=== PATIENT | female | born 1970 | race Caucasian/White ===

== ENCOUNTER 2022-11-11 12:52 | Emergency (ER) | payer OTHER, SELFPAY ==
[2022-11-11] VITALS (7 sets, daily range): BP systolic 133; BP diastolic 75; PULSE 78–85; RESP 16; TEMP 36.9; O2SAT 94–100; BMI 26.9
--- NOTE | 2022-11-11 13:02 | DI.CT.S_ITS ---
PROCEDURE: CT HEAD/BRAIN WO CON INDICATIONS: confusion hx of head bleed TECHNIQUE: Noncontrast 4.5 mm thick angled axial sections acquired from the foramen magnum to the vertex, with coronal and sagittal reformats. For radiation dose reduction, the following was used: automated exposure control, adjustment of mA and/or kV according to patient size. COMPARISON: [facility], CT, CT HEAD WITHOUT CONTRAST, 12/25/2020, 9:57. FINDINGS: Image quality: Excellent. CSF spaces: Basal cisterns are patent. No extra-axial fluid collections. Ventricles are normal in size and shape. Brain: No midline shift. No intracranial masses or hemorrhage. Jimenez-white matter interface is normal. Skull and face: Calvarium and visualized facial bones are intact, without suspicious lesions. Sinuses: Visualized sinuses and mastoids are clear. IMPRESSION: No evidence acute intracranial abnormality. Dictated by: John Flores M.D. on 11/11/2022 at 13:25 Approved by: John Flores M.D. on 11/11/2022 at 13:26
[2022-11-11 13:35] LABS: Add Manual Diff / Slide Review NO; Basophils Absolute Auto 0 /uL (0-100); Basophils Percent Auto 0.7 % (0-2); Eosinophils Absolute Auto 100 /uL (0-450); Eosinophils Percent Auto 1.3 % (2-4); Hematocrit 41.7 % (36-46); Hemoglobin 14.3 g/dL (12.0-16.0); Lymphocytes Absolute Auto 2100 /uL (1100-4500); Lymphocytes Percent Auto 33.2 % (25-40); Mean Corpuscular HGB Conc 34.4 % (30-36); Mean Corpuscular Volume 93.1 fL (80-100); Monocytes Absolute Auto 500 /uL (0-900); Monocytes Percent Auto 7.2 % (3-14); Neutrophils Absolute Auto 3700 /uL (1500-7000); Neutrophils Percent Auto 57.6 % (50-75); Platelet Count 181 X10^3/uL (150-400); Red Blood Cell Count 4.48 X10^6/uL (4.0-5.2); White Blood Cell Count 6.3 X10^3/uL (4.5-11.0)
[2022-11-11 13:41] LABS: Prothrombin Time 11.9 SECONDS (10.1-12.7)
--- NOTE | 2022-11-11 13:41 | ED_ITS ---
HPI - Neuro Symptoms/Deficit General Chief Complaint: Neuro Symptoms/Deficit Stated Complaint: face feels paralyzed, rt eye twitch, confusion Time Seen by Provider: 11/11/22 13:01 Source: patient Mode of arrival: Ambulatory Limitations: no limitations History of Present Illness HPI Narrative: Patient is a 52-year-old female. Reported history of a intracranial hemorrhage 2 years ago. Patient states this was because she was ?smoking at the time ?and also had quite a bit of stress. There was no reported trauma. She was not on anticoagulation at the time. She stated she did not have an aneurysm. Did not have any brain surgery. She said that today she was at work when she stated that she felt like both sides of her face were sagging. She went into the bathroom and looked in the mirror and did not notice any difference in her smile. She did not have any chest pain or shortness of breath. She walked out to the break room and sat with some coworkers who asked if she was okay. She stated that they had her smile for them and once again did not notice any difference. She is having some weakness in her extremities but this is not necessarily new for her. She also thought that maybe she was having some problems speaking. By the time I evaluated the patient all of her symptoms have resolved. On Anticoagulants: No Review of Systems Review of Systems ROS Unobtainable: All systems reviewed & are unremarkable except as noted in HPI and below Hematologic/Lymphatic On Anticoagulants: No Patient History Medical History Intracranial hemorrhage Exam Initial Vital Signs Initial Vital Signs: Vital Signs Temperature 98.4 F 11/11/22 13:12 Pulse Rate 83 11/11/22 13:12 Respiratory Rate 16 11/11/22 13:12 Blood Pressure 133/75 11/11/22 13:12 Pulse Oximetry 97 11/11/22 13:12 Oxygen Delivery Method 11/11/22 13:12 Const General: cooperative, comfortable and No ill appearing HENMT Head: normal to inspection and normocephalic Mouth: oral mucosae normal Resp Effort & Inspection: normal respiratory effort Auscultation: clear to auscultation bilaterally Cardio Rate: regular rate Rhythm: regular rhythm GI Inspection: normal to inspection Skin General: no rashes or lesions noted Neuro General: patient alert, patient awake, patient oriented x3 and moves all extrem ities Cranial Nerves: CN's II-XI intact bilaterally Speech: speech normal Motor: muscle tone normal throughout Sensory Exam: no sensory deficits noted Extrem General: normal to inspection and capillary refill normal Psych Appearance: grossly normal and well kempt Scores ABCD2 Age >= 60 years: no Initial BP. Either SBP >= 140 or DBP >= 90.: no Clinical features of the TIA: speech disturbance without weakness Duration of symptoms: 10-59 minutes History of diabetes: no ABCD2 Score: 2 GCS [place] coma scale eye opening: Spontaneous [place] coma scale verbal response: Orientated [place] coma scale motor response: Obey commands [place] coma scale total score: 15 NIH Stroke Scale Level of Conciousness: Alert, keenly responsive Ask month/age: Answers both questions correctly. Open/close eyes, close hand: Performs both tasks correctly Best gaze horizontal: Normal Visual mahajan: No visual loss Facial palsy: Normal symetrical movement Left arm drift: No drift for full 10 sec Right arm drift: No drift for full 10 sec Left leg drift: No drift for full 5 sec Right leg drift: No drift for full 5 sec Limb ataxia: Absent Sensory on face/arms/legs: Normal, no sensory loss Best language: No aphasia, normal Dysarthria: Normal Extinction or inattention: No abnormality Total NIH Stroke scale score: 0 Course Orders Ordered: ED Orders 11/11/22 13:02 CT head/brain wo con Stat 11/11/22 13:20 Complete Blood Count AUTO DIFF Stat Comprehensive Metabolic Panel Stat Lipase Stat Partial Thromboplastin Time Stat Prothrombin Time INR Stat Troponin & CK Cardiac Panel Stat 11/11/22 14:20 EKG-12 Lead Stat Vital Signs Vital signs: Vital Signs - 8 hr 11/11/22 13:12 11/11/22 13:16 11/11/22 13:17 Temperature 98.4 F Pulse Rate 83 85 83 Respiratory Rate 16 Blood Pressure 133/75 Pulse Oximetry 97 97 97 Oxygen Delivery Method Room Air 11/11/22 13:17 11/11/22 13:30 11/11/22 14:00 Temperature Pulse Rate 83 83 Respiratory Rate Blood Pressure 133/75 Pulse Oximetry 94 94 Oxygen Delivery Method 11/11/22 14:30 11/11/22 15:03 Temperature Pulse Rate 78 79 Respiratory Rate Blood Pressure Pulse Oximetry 97 100 Oxygen Delivery Method MDM - Neuro Symptoms/Deficit Lab Data Attestation: I reviewed the patient's lab results. 11/11/22 13:20 11/11/22 13:20 Labs: Lab Results 11/11/22 11/11/22 11/11/22 Range/Units 13:20 13:20 13:20 WBC 6.3 (4.5-11.0) X10^3/uL RBC 4.48 (4.0-5.2) X10^6/uL Hgb 14.3 (12.0-16.0) g/dL Hct 41.7 (36-46) % MCV 93.1 (80-100) fL MCH 32.0 (26-34) PG MCHC 34.4 (30-36) % RDW 13.0 (11.6-14.8) % Plt Count 181 (150-400) X10^3/uL Neut % (Auto) 57.6 (50-75) % Lymph % (Auto) 33.2 (25-40) % [place] % (Auto) 7.2 (3-14) % Eos % (Auto) 1.3 L (2-4) % Baso % (Auto) 0.7 (0-2) % Neut # (Auto) 3700 (4852-1914) /uL Lymph # (Auto) 2100 (4102-0061) /uL [place] # (Auto) 500 (0-900) /uL Eos # (Auto) 100 (0-450) /uL Baso # (Auto) 0 (0-100) /uL PT 11.9 (10.1-12.7) SECONDS INR 1.0 (0.9-1.3) APTT (26-36) SECONDS Sodium 139 (137-145) mmol/L Potassium 3.7 (3.4-5.1) mmol/L Chloride 105 (98-107) mmol/L Carbon Dioxide 25 (22-32) mmol/L BUN 14 (7-17) mg/dL Creatinine 0.71 (0.52-1.04) mg/dL Estimated GFR > 60 (>60) mL/min BUN/Creatinine Ratio 19.7 (6-22) Glucose 128 H (70-100) mg/dL Calcium 8.7 (8.4-10.2) mg/dL Total Bilirubin 0.4 (0.2-1.3) mg/dL AST 34 (14-36) IU/L ALT 28 (<35) IU/L Alkaline Phosphatase 117 (38-126) U/L Total Creatine Kinase 106 (30-135) U/L CK-MB (CK-2) 1.23 (<2.37) ng/mL CK-MB (CK-2) Rel Index 1.2 L (1.5-5.0) % Troponin I < 0.012 (0.01-0.034) ng/mL Total Protein 7.6 (6.3-8.2) g/dL Albumin 4.2 (3.5-5.0) g/dL Globulin 3.4 (1.7-4.1) g/dL Albumin/Globulin Ratio 1.2 (1.0-2.8) Lipase 139 (23-300) U/L 11/11/22 Range/Units 13:20 WBC (4.5-11.0) X10^3/uL RBC (4.0-5.2) X10^6/uL Hgb (12.0-16.0) g/dL Hct (36-46) % MCV (80-100) fL MCH (26-34) PG MCHC (30-36) % RDW (11.6-14.8) % Plt Count (150-400) X10^3/uL Neut % (Auto) (50-75) % Lymph % (Auto) (25-40) % [place] % (Auto) (3-14) % Eos % (Auto) (2-4) % Baso % (Auto) (0-2) % Neut # (Auto) (9651-2517) /uL Lymph # (Auto) (7772-7704) /uL [place] # (Auto) (0-900) /uL Eos # (Auto) (0-450) /uL Baso # (Auto) (0-100) /uL PT (10.1-12.7) SECONDS INR (0.9-1.3) APTT 35 (26-36) SECONDS Sodium (137-145) mmol/L Potassium (3.4-5.1) mmol/L Chloride (98-107) mmol/L Carbon Dioxide (22-32) mmol/L BUN (7-17) mg/dL Creatinine (0.52-1.04) mg/dL Estimated GFR (>60) mL/min BUN/Creatinine Ratio (6-22) Glucose (70-100) mg/dL Calcium (8.4-10.2) mg/dL Total Bilirubin (0.2-1.3) mg/dL AST (14-36) IU/L ALT (<35) IU/L Alkaline Phosphatase (38-126) U/L Total Creatine Kinase (30-135) U/L CK-MB (CK-2) (<2.37) ng/mL CK-MB (CK-2) Rel Index (1.5-5.0) % Troponin I (0.01-0.034) ng/mL Total Protein (6.3-8.2) g/dL Albumin (3.5-5.0) g/dL Globulin (1.7-4.1) g/dL Albumin/Globulin Ratio (1.0-2.8) Lipase (23-300) U/L Urine Dip Bedside Urine Glucose Negative Bedside Urine Bilirubin - Negative Bedside Urine Ketone - Negative Urine Specific [place] 1.030 Bedside Urine Occult Blood - Negative Bedside Urine pH 5.5 Bedside Urine Protein - Negative Bedside Urine Urobilinogen - Negative Bedside Urine Nitrite - Negative Bedside Urine Leukocytes - Negative Esterase Imaging Data CT scan - head: Radiologist's Impression: PROCEDURE:? CT HEAD/BRAIN WO CON ? INDICATIONS:? confusion hx of head bleed ? TECHNIQUE:? Noncontrast 4.5 mm thick angled axial sections acquired from the foramen magnum to the vertex, with coronal and sagittal reformats.? For radiation dose reduction, the following was used:? automated exposure control, adjustment of mA and/or kV according to patient size.? ? COMPARISON:? [facility], CT, CT HEAD WITHOUT CONTRAST, 12/25/2020, 9:57. ? FINDINGS:? Image quality:? Excellent.? ? CSF spaces:? Basal cisterns are patent.? No extra-axial fluid collections.? Ventricles are normal in size and shape.? ? Brain:? No midline shift.? No intracranial masses or hemorrhage.? Jimenez-white matter interface is normal.? ? Skull and face:? Calvarium and visualized facial bones are intact, without suspicious lesions.? ? Sinuses:? Visualized sinuses and mastoids are clear.? ? IMPRESSION:? No evidence acute intracranial abnormality. ECG Data Attestation: I personally reviewed and interpreted this ECG as follows: Interpretation: Sinus rhythm Ventricular rate is 78 Normal axis Normal QRS Normal QTC No ST T wave changes MDM Narrative Medical decision making narrative: Patient's symptoms have completely resolved. Her ABCD2 score is 2. She has a normal neurologic exam. She stated that the drooping on the sides of her face was bilateral which points against an acute CVA. The only concerning thing that she talks about is the slurring of her words which has resolved. Patient is not hypertensive. She did have a head bleed in the past however her CT scan today is negative. Patient may require further workup over this could be done by her primary doctor. We did discuss the use of starting her on an aspirin. Will discharge patient home with return precautions. She expressed understanding and agreement. Discharge Plan Departure Patient Disposition: Home Clinical Impression: Transient cerebral ischemia Instructions: DI for Transient Ischemic Attack Activity Restrictions/Additional Instructions: I do recommend that you continue to take all of your medications as directed. I also recommend that you take an aspirin on a daily basis. Contact your primary doctor for further workup to include the indications for an echocardiogram, MRI and other imaging studies to look at the vessels in your neck. Return to the emergency department for any new or worsening symptoms. Referrals: Earlene Charlton DO [Primary Care Provider] - Stand Alone Forms: Patient Portal/API
[2022-11-11 13:55] LABS: Alanine Aminotransferase 28 IU/L (<35); Albumin 4.2 g/dL (3.5-5.0); Albumin Globulin Ratio 1.2 (1.0-2.8); Alkaline Phosphatase 117 U/L (38-126); Aspartate Aminotransferase 34 IU/L (14-36); BUN Creatinine Ratio 19.7 (6-22); Bilirubin Total 0.4 mg/dL (0.2-1.3); Blood Urea Nitrogen 14 mg/dL (7-17); Calcium 8.7 mg/dL (8.4-10.2); Carbon Dioxide 25 mmol/L (22-32); Chloride 105 mmol/L (98-107); Creatine Kinase 106 U/L (30-135); Estimated Glomerular Filt Rate > 60 mL/min (>60); Globulin 3.4 g/dL (1.7-4.1); Glucose 128 mg/dL (70-100); Lipase 139 U/L (23-300); Potassium 3.7 mmol/L (3.4-5.1); Sodium 139 mmol/L (137-145); Total Protein 7.6 g/dL (6.3-8.2)
[2022-11-11 13:56] LABS: PTT Partial Thromboplastin Tim 35 SECONDS (26-36)
[2022-11-11 14:10] LABS: Troponin I < 0.012 ng/mL (0.01-0.034)
[2022-11-11 14:19] LABS: CKMB % Relative Index 1.2 % (1.5-5.0); Creatine Kinase MB 1.23 ng/mL (<2.37); HEMOLYSIS 17 (0-50)
--- NOTE | 2022-11-11 15:16 | PC.NURSE ---
1305: Pt arrived to room. Ambulatory. AAO x 3. Equal head transfer clerk and pushes. No drift noted. Clear speech. No facial droop. Pt states at 1205 she felt disoriented, was having R eye twitching x 4 days and felt like her facial muscles on the R side were droopy however facial weakness resolved shortly thereafter. Pt with h/o head bleed 2 years ago. Pt to and from CT. Dr Lewis at bedside. NIH 0. NAD 1430: RN in room to check on patient. Given water as requested. Pt states My sister said i need an MRI because my mother just had a stroke and she had an MRI Pt made aware she has a grossly intact neuro exam with a normal head CT and was advised she can have an MRI outpatient. Pt called to josé antonio Dowling and reports that no one has given her water despite her asking. This RN advised pt that she was just given water as requested and cup on counter.
--- NOTE | 2022-11-11 16:29 | PC.NURSE ---
Of note: Pt states that she did not have her call andrea. Visualized in place. States she did not get water, given water by Benita Verde x 2 during visit. While in the ED, a full trauma was called, only room available was pt's as she was being discharged. Pt refused to get off the phone and leave the room despite being asked x 3. Finally pt was escorted to room 3 where discharge instructions were given. Pt verbalized dissatisfaction with care stating my sister says I need an MRI. Pt a/o x 4, ambulatory w/o difficulty. [place]/warm/dry.
== END 2022-11-11 15:33 | disposition home or self-care (01) ==
PROVIDERS: Emergency Provider Emergency Medicine; PCP Family Medicine
DX: G45.9 Transient cerebral ischemic attack, unspecified (principal); R07.9 Chest pain, unspecified
CPT/HCPCS: 36415; 70450; 80053; 81003; 82550; 82553; 83690; 84484; 85025; 85610; 85730; 93005; 99284

== ENCOUNTER 2024-02-06 19:00 | Emergency (ER) | payer OTHER, SELFPAY ==
[2024-02-06 19:11] VITALS: BP 138/84; PULSE 81; RESP 16; TEMP 36.3; O2SAT 97; BMI 27.4
--- NOTE | 2024-02-06 20:08 | ED.LOWEXIN ---
HPI - Extremity Injury (Lower) General Chief Complaint: Extremity Injury, Lower Stated Complaint: RT KNEE INJURY Time Seen by Provider: 02/06/24 20:08 Source: patient, RN notes reviewed and old records reviewed Mode of arrival: Wheelchair Limitations: no limitations History of Present Illness HPI Narrative: 53-year-old female with reported history of prior intracranial hemorrhage 2 years ago. Patient was going through the door of her RV stepping up on the steps she open the door and miss timed it hitting her kneecap on the underside of the door. She states it was quite painful. There has an abrasion over the knee. She states she has been able to weightbear although it is uncomfortable. She is able to fully flex and extend her leg. She can rotate it without issue. She is unsure when her tetanus was updated and states she does not wish to update it today. She denies any other injuries. Related Data Allergies Allergy/AdvReac Type Severity Reaction Status Date / Time No Known Drug Allergies Allergy Verified 02/06/24 19:14 Review of Systems Review of Systems ROS Unobtainable: All systems reviewed & are unremarkable except as noted in HPI and below Patient History Medical History Intracranial hemorrhage Social History Smoking Status: Never smoker Smoking Status: Never smoker alcohol intake frequency: 0-2 drinks per day Substance Use Type: does not use Exam Narrative Exam Narrative: GENERAL: Alert and oriented x three, female in mild distress. HEENT: Head normocephalic, atraumatic, EOMI, pupils reactive, face symmetric, moist mucous membranes NECK: Supple, full range of motion CARDIOVASCULAR: Regular rate and rhythm without murmurs, rubs or gallops. RESPIRATORY: Breath sounds equal bilaterally, no wheezes rales or rhonchi. EXTREMITIES: Normal range of motion, no clubbing or edema. Neurovascularly intact, patient has not abrasion over the patella that is superficial, there is no ecchymosis or edema, patient has full range of motion flexion and extension, normal valgus and varus as well as normal joint laxity testing with no pain. Normal compression test without pain. She is 2+ dorsalis pedis pulse. With no other bony tenderness in the foot ankle or lower leg or thigh. No bony tenderness in the knee. She tolerates palpation over the patella by myself and herself with minimal issue. NEUROLOGICAL: Cranial nerves II through XII grossly intact. Moving all extremities SKIN: Warm, dry, no petechiae, no rashes or lesions other than noted above. Initial Vital Signs Initial Vital Signs: Vital Signs Temperature 97.3 F L 02/06/24 19:11 Pulse Rate 81 02/06/24 19:11 Respiratory Rate 16 02/06/24 19:11 Blood Pressure 138/84 02/06/24 19:11 Pulse Oximetry 97 02/06/24 19:11 Oxygen Delivery Method Room Air 02/06/24 19:11 Course Vital Signs Vital signs: Vital Signs - 8 hr 02/06/24 19:11 02/06/24 20:25 Temperature 97.3 F L Pulse Rate 81 71 Respiratory Rate 16 18 Blood Pressure 138/84 133/71 Pulse Oximetry 97 96 Oxygen Delivery Method Room Air Room Air MDM - Extremity Injury (Lower) MDM Narrative Medical decision making narrative: 53-year-old female who had injury to her right knee resulting in what appears to be an abrasion, no obvious bony involvement. Patient has been able to weightbear. She does normally use a cane and was offered walker or crutches but prefers to use her cane she states she does have crutches with her RV.. She has full range of motion with no significant bony tenderness, no laxity on joint testing and no pain when testing her joint laxity that were an x-ray at this time. Patient does not wish to have her tetanus updated. She was provided an [place] wrap. Did discuss return precautions signs and symptoms to return. Discharge Plan Departure Patient Disposition: Home Clinical Impression: Abrasion of knee, right Instructions: DI for Knee Pain Activity Restrictions/Additional Instructions: Follow up if you are having persistent pain with weight-bearing or movement at 7-10 days. Keep wrap clean and dry. Elevated affected body part to decrease swelling. OK to use ice pack on the affected body part. Use for 15-20 minutes each time, for 5-6x per day. If you develop worsening pain, numbness, tingling, discoloration of the affected body part, loosen the BROCK wrap, and either see your doctor for an urgent re-assessment, or return to the Emergency Department. Return to the Emergency Department for any new or worsening symptoms. Referrals: Earlene Charlton DO [Primary Care Provider] - Stand Alone Forms: Patient Portal/API
[2024-02-06 20:25] VITALS: BP 133/71; PULSE 71; RESP 18; O2SAT 96
== END 2024-02-06 20:26 | disposition home or self-care (01) ==
PROVIDERS: Emergency Provider Emergency Medicine; PCP Family Medicine
DX: S80.211A Abrasion, right knee, initial encounter (principal); W22.8XXA Striking against or struck by other objects, initial encounter
CPT/HCPCS: 99281; 99283

== ENCOUNTER 2024-03-07 08:33 | Emergency (ER) | payer OTHER, SELFPAY ==
[2024-03-07 08:43] VITALS: BP 136/76; PULSE 74; RESP 18; TEMP 36.4; O2SAT 98; BMI 27.4
--- NOTE | 2024-03-07 08:51 | ED_ITS ---
HPI - Skin/Abscess/Foreign Bdy General Chief complaint: Skin/Abscess/Foreign Body Stated complaint: Left foot sliver Time Seen by Provider: 03/07/24 08:45 Source: patient Mode of arrival: Ambulatory Limitations: no limitations History of Present Illness HPI narrative: Patient is a 54-year-old female who presents today with sliver in her left foot. They tried to get it out last night but unable to do so. She says it is extremely tender and painful she feels like it has on a nerve. She says she was walking on the floor in her RV. They are unsure what this is. She is able to stand on it. She was offered a tetanus shot but declined at this time. Related Data Allergies Allergy/AdvReac Type Severity Reaction Status Date / Time No Known Drug Allergies Allergy Verified 02/06/24 19:14 Patient History Medical History Intracranial hemorrhage Social History Smoking Status: Never smoker Smoking Status: Never smoker alcohol intake frequency: 0-2 drinks per day Substance Use Type: does not use Exam Initial Vital Signs Initial Vital Signs: Vital Signs Temperature 97.6 F 03/07/24 08:43 Pulse Rate 74 03/07/24 08:43 Respiratory Rate 18 03/07/24 08:43 Blood Pressure 136/76 03/07/24 08:43 Pulse Oximetry 98 03/07/24 08:43 Oxygen Delivery Method Room Air 03/07/24 08:43 GENERAL: Well-appearing, well-nourished and in no acute distress. CARDIOVASCULAR: peripheral pulses in tact, cap refill <2 sec RESPIRATORY: No respiratory distress, speaks in full sentences without difficulty EXTREMITIES: Normal range of motion, no clubbing or edema. Neurovascularly intact NEUROLOGICAL: Cranial nerves II through XII grossly intact. Normal gait and speech. SKIN: Left foot there is a foreign body very small sliver sticking out. No surrounding erythema swelling or fluctuation Procedures Foreign Body OTHER Foreign Body Removal Site: left and foot Description of foreign body: other (sliver) Technique: removal with forceps Complications: pain Course Orders Ordered: ED Orders 03/07/24 08:46 Consult to MAIL MACHINE OPERATOR - Arch Support Technician Stat Vital Signs Vital signs: Vital Signs - 8 hr 03/07/24 08:43 Temperature 97.6 F Pulse Rate 74 Respiratory Rate 18 Blood Pressure 136/76 Pulse Oximetry 98 Oxygen Delivery Method Room Air MDM - Skin/Abscess/Foreign Bdy MDM Narrative Medical decision making narrative: Patient presents today with sliver in her left foot. It is palpable on the skin. Attempt made at directly removing the sliver with tweezers and hemostats. Did get some of it out. There may still be a little piece in but she definitely is less tender than she was. At this time recommend soaking and close monitoring. She again is offered a tetanus and again declines. She left prior to her discharge instructions. Discharge Plan Departure Patient Disposition: Home Clinical Impression: Foreign body in skin Activity Restrictions/Additional Instructions: *You have been diagnosed with foreign body and skin *What to do: At this time we did get some of it out. I do recommend soaking in warm water continue to look at foot every day. *Continue to take medications as directed Tylenol Motrin as needed for pain *Follow up with your primary care provider in 2-3 days or call [phone] *Return to ER if you should have increasing redness swelling pain or any new, worsening or concerning symptoms Referrals: Earlene Charlton DO [Primary Care Provider] - Stand Alone Forms: Patient Portal/API
== END 2024-03-07 08:55 | disposition home or self-care (01) ==
PROVIDERS: Emergency Provider Emergency Medicine; PCP Family Medicine
DX: S90.852A Superficial foreign body, left foot, initial encounter (principal)
CPT/HCPCS: 99281